=== PATIENT | female | born 1970 | race Hispanic/Latino ===

== ENCOUNTER → 2019-07-29 | Day surgery (SDC) | payer OTHER ==
[~2019-07-29] MED LIST: FENTANYL CITRATE/PF 100MCG/2 ML INJ ONE; METFORMIN HCL500 MG PO; MICARDIS80 MG PO; MIDAZOLAM HCL 2 MG/2 ML VIAL ONE; PROPOFOL IV EMULSION 10 MG/ML 20 ML VIAL ONE
[2019-07-29 13:00] VITALS: BP 103/62
== END | disposition home or self-care (01) ==
LOC: OR 09:34
PROVIDERS: ATTEND Internal Medicine
DX: R10.32 Left lower quadrant pain (principal); K62.1 Rectal polyp; K64.0 First degree hemorrhoids; K76.0 Fatty (change of) liver, not elsewhere classified; E66.9 Obesity, unspecified; E11.9 Type 2 diabetes mellitus without complications; E78.5 Hyperlipidemia, unspecified; I10 Essential (primary) hypertension; Z01.810 Encounter for preprocedural cardiovascular examination; Z79.84 Long term (current) use of oral hypoglycemic drugs; Z68.34 Body mass index [BMI] 34.0-34.9, adult
CPT/HCPCS: 36415; 45380; 81025; 82948; 93005; J2250; J2704; J3010

== ENCOUNTER 2021-02-07 20:06 | Emergency (ER) | payer OTHER ==
[~2021-02-07] VITALS: Ht 154.9 cm; Wt 82.6 kg
[~2021-02-07 20:06] MED LIST changes: -FENTANYL CITRATE/PF 100MCG/2 ML INJ ONE; -MIDAZOLAM HCL 2 MG/2 ML VIAL ONE; -PROPOFOL IV EMULSION 10 MG/ML 20 ML VIAL ONE
== END 2021-02-07 21:10 | disposition home or self-care (01) ==
LOC: ER 21:03
DX: U07.1 COVID-19 (principal); R05 Cough; R06.02 Shortness of breath; R50.9 Fever, unspecified; I10 Essential (primary) hypertension; E11.9 Type 2 diabetes mellitus without complications; E78.5 Hyperlipidemia, unspecified